=== PATIENT | male | born 1950 | race Caucasian/White ===

== ENCOUNTER 2021-11-18 11:49 | Emergency (ER) | payer MEDICARE, OTHER ==
[~2021-11-18] VITALS: Ht 175.3 cm; Wt 108.9 kg
[2021-11-18 11:54] VITALS: BP 141/75
--- NOTE | 2021-11-18 11:55 | NUR ---
BIBS C/O LLE PAIN & BRUISE x 3 DAYS, ON ELIQUIS FOR A-FIB. AMBULATORY, [id number]
--- NOTE | 2021-11-18 12:05 | NUR ---
AT BED SIDE
--- NOTE | 2021-11-18 12:20 | NUR ---
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
== END 2021-11-18 13:40 | disposition home or self-care (01) ==
LOC: ER 11:58
DX: S80.12XA Contusion of left lower leg, initial encounter (principal); I10 Essential (primary) hypertension; E78.5 Hyperlipidemia, unspecified; I48.91 Unspecified atrial fibrillation; I25.10 Atherosclerotic heart disease of native coronary artery without angina pectoris; I25.2 Old myocardial infarction; M19.90 Unspecified osteoarthritis, unspecified site; Z98.890 Other specified postprocedural states; X58.XXXA Exposure to other specified factors, initial encounter; Y93.89 Activity, other specified; Y92.89 Other specified places as the place of occurrence of the external cause; Y99.8 Other external cause status
CPT/HCPCS: 93971-TC